=== PATIENT | female | born 1945 | race Caucasian/White ===

== ENCOUNTER 2017-06-01 12:12 | Emergency (ER) | payer MEDICARE, OTHER ==
[~2017-06-01] VITALS: Ht 165.1 cm; Wt 55.8 kg
[~2017-06-01 12:12] MED LIST: ALBU90OI6 INH; AMIO200 PO; ANDROGEL2.5 GM TD; ASPI325 PO; ATOR40TA PO; BUME1; CITA20 PO; CLON.1 PO; CLOP75 PO; CREON DR 12,001 EACH PO; FLUSAL1005 INH; FURO40 PO; IMIP25 PO; Klor-Con 1010 MEQ PO; LORA10 PO; METCAR500 PO; METH5 PO; METO100ER PO; METO50 PO; NITR.4SL SL; OLME20 PO; PROG100 PO; PROGESTERONE200 MG PO; Senna8.6 M1 PO; TRAZ50 PO; TROSPIUM CHLORI20 MG PO; Ultram50 MG PO; VERA180ERB PO
[2017-06-01 13:45] LABS: BASOPHILS ABSOLUTE AUTO 0.01 K/mm3 (0.00-0.23); BASOPHILS PERCENT AUTO 0 % (0-2); EOSINOPHILS ABSOLUTE AUTO 0.04 K/mm3 (0.00-0.68); EOSINOPHILS PERCENT AUTO 0 % (0-6); Hemoglobin 14.2 g/dL (11.5-16.0); IMMATURE GRAN ABSOLUTE AUTO 0.02 K/mm3 (0.00-0.10); IMMATURE GRAN PERCENT AUTO 0 % (0-1); LYMPHOCYTES ABSOLUTE AUTO 1.29 K/mm3 (0.84-5.20); LYMPHOCYTES PERCENT AUTO 13 % (21-46); MONOCYTES PERCENT AUTO 9 % (4-13); Mean Corpuscular HGB 31.9 pg (26.0-34.0); Mean Corpuscular Volume 97 fL (80-100); Mean Platelet Volume 8.5 fL (9.1-12.4); NEUTROPHILS ABSOLUTE AUTO 7.48 K/mm3 (1.96-9.15); NEUTROPHILS PERCENT AUTO 77 % (41-73); Platelet Count 433 K/mm3 (150-400); RDW Coefficient Variation 16.2 % (11.7-14.2); RDW Standard Deviation 57.1 fL (35.1-46.3); Red Blood Cell Count 4.45 M/mm3 (3.80-5.20); White Blood Cell Count 9.74 K/mm3 (4.00-11.30)
[2017-06-01 15:30] LABS: Source, Urine Clean Catch
[2017-06-01 15:33] LABS: Appearance, Urine Clear (Clear); Bilirubin, Urine Neg (Neg); Blood, Urine 1+ (Neg); Color, Urine Yellow (P-Yellow); Glucose Qualitative, Urine Neg (Neg); Ketones, Urine Neg (Neg); Leukocyte Esterase, Urine Neg (Neg); Nitrite, Urine Neg (Neg); Protein, Urine Neg (Neg); Specific Gravity, Urine 1.015 (1.003-1.022); Urobilinogen, Urine 1+ (Normal)
[2017-06-01] MEDS ORDERED: ASPI81CH PO (15:33)
[2017-06-01 16:17] LABS: Bacteria Few /hpf; Red Blood Cells, Urine 0-2 /hpf (0-2); Squamous Epithelial Cells Few /hpf (Few); White Blood Cells, Urine 0-2 /hpf (0-5)
[2017-06-01 16:37] LABS: Troponin I 0.068 ng/mL (0.000-0.040)
[2017-06-01 17:05] LABS: Albumin, Blood 3.2 g/dL (3.4-5.0); Albumin/Globulin Ratio 0.8 (0.8-1.8); Bun/Creatinine Ratio 28.6 (12.0-20.0); Calcium, Blood 8.9 mg/dL (8.5-10.1); Creatinine, Blood 1.33 mg/dL (0.40-1.00); Globulin, Blood 3.9 g/dL (2.2-4.0); Potassium, Blood 4.3 mmol/L (3.5-5.5); Total Protein, Blood 7.1 g/dL (6.4-8.2)
[2017-06-01] MEDS ORDERED: Percocet 5-3251 EACH PO (17:16)
== END 2017-06-01 17:37 | disposition home or self-care (01) ==
LOC: ER 12:12
PROVIDERS: Emergency Medicine
DX: R10.9 Unspecified abdominal pain (principal); N18.4 Chronic kidney disease, stage 4 (severe); M48.54XA Collapsed vertebra, not elsewhere classified, thoracic region, initial encounter for fracture; I25.10 Atherosclerotic heart disease of native coronary artery without angina pectoris; I25.2 Old myocardial infarction; F17.200 Nicotine dependence, unspecified, uncomplicated; Z88.8 Allergy status to other drugs, medicaments and biological substances; Z91.040 Latex allergy status; Z79.899 Other long term (current) drug therapy; Z79.82 Long term (current) use of aspirin; Z96.653 Presence of artificial knee joint, bilateral
CPT/HCPCS: 36415; 71045; 74176; 80053; 81001; 83690; 84484; 85025; 93005; 93010; 96374; 96375; 99284; J2405; J3010

== ENCOUNTER 2018-10-14 12:24 | Inpatient (IN) | payer MEDICARE, OTHER ==
[~2018-10-14] VITALS: Ht 160 cm; Wt 50.6 kg
[~2018-10-14 12:24] MED LIST changes: +ASPI81CH PO; -BUME1; -CITA20 PO; -METH5 PO; +Percocet 5-3251 EACH PO
[2018-10-14] MEDS ORDERED: ATOR40TA PO (12:51)
[2018-10-14] MEDS ORDERED: CLOP75 PO (12:51)
[2018-10-14] MEDS ORDERED: BUME2 PO ×2 (12:51→15:35)
[2018-10-14] MEDS ORDERED: POTCHL10ER PO (12:52)
[2018-10-14] MEDS ORDERED: TROSPIUM CHLORI20 MG PO (12:52)
[2018-10-14] MEDS ORDERED: Robaxin750 MG PO (12:52)
[2018-10-14] MEDS ORDERED: CITA20 PO ×2 (12:53→15:34)
[2018-10-14] MEDS ORDERED: IMIP25 PO (12:53)
[2018-10-14] MEDS ORDERED: PROGESTERONE200 MG PO (12:53)
[2018-10-14 13:04] LABS: BASOPHILS ABSOLUTE AUTO 0.03 K/mm3 (0.00-0.23); BASOPHILS PERCENT AUTO 0 % (0-2); EOSINOPHILS ABSOLUTE AUTO 0.12 K/mm3 (0.00-0.68); EOSINOPHILS PERCENT AUTO 1 % (0-6); Hemoglobin 14.5 g/dL (11.5-16.0); IMMATURE GRAN ABSOLUTE AUTO 0.02 K/mm3 (0.00-0.10); IMMATURE GRAN PERCENT AUTO 0 % (0-1); LYMPHOCYTES PERCENT AUTO 24 % (21-46); MONOCYTES ABSOLUTE AUTO 0.79 K/mm3 (0.16-1.47); MONOCYTES PERCENT AUTO 9 % (4-13); Mean Corpuscular HGB 30.3 pg (26.0-34.0); Mean Corpuscular Volume 92 fL (80-100); Mean Platelet Volume 8.7 fL (9.1-12.4); NEUTROPHILS ABSOLUTE AUTO 5.46 K/mm3 (1.96-9.15); NEUTROPHILS PERCENT AUTO 65 % (41-73); Platelet Count 248 K/mm3 (150-400); RDW Coefficient Variation 13.7 % (11.7-14.2); RDW Standard Deviation 46.5 fL (35.1-46.3); Red Blood Cell Count 4.79 M/mm3 (3.80-5.20); White Blood Cell Count 8.42 K/mm3 (4.00-11.30)
[2018-10-14 13:21] LABS: Albumin, Blood 3.9 g/dL (3.4-5.0); Bilirubin, Total 0.8 mg/dL (0.1-1.0); Bun/Creatinine Ratio 24.8 (12.0-20.0); Calcium, Blood 9.7 mg/dL (8.5-10.1); Creatinine, Blood 1.45 mg/dL (0.40-1.00); Globulin, Blood 4.1 g/dL (2.2-4.0)
[2018-10-14 13:28] LABS: Troponin I 1.6 ng/mL (0.000-0.040)
[2018-10-14] MEDS ORDERED: METH5 PO (14:30)
[2018-10-14 14:42] LABS: International Normalized Ratio 0.96; Prothrombin Time Results 10.2 Sec (9.7-11.5)
[2018-10-14] MEDS ORDERED: PANT40 PO (14:42)
[2018-10-14] MEDS ORDERED: ALBU90OI6 INH (15:18)
[2018-10-14] MEDS ORDERED: FLUT1DIS5 INH (15:19)
[2018-10-14] MEDS ORDERED: CREON DR 12,001 EACH PO (15:30)
[2018-10-14] MEDS ORDERED: CALC.25 PO (15:33)
[2018-10-14] MEDS ORDERED: Estrace Vagin42.5 GM TOP (15:37)
[2018-10-14] MEDS ORDERED: TESTOSTERO30 MG/1.5 TOP (15:40)
[2018-10-14] MEDS ORDERED: EPINEPHRIN0.3 MG/0.3 IM (15:40)
--- NOTE | 2018-10-14 18:59 | NUR ---
RECIEVED REPORT FROM MEN'S GOLF COACH AND ASSUMED CARE OF PATIENT. SHE IS ANXIOUS AND SHAKY ON ARRIVAL, HOWEVER, SHE IS ABLE TO STAND AND PIVOT TRANSFER TO THE BED. PT ABLE TO ASSIST WITH MED-RECONCILIATION AND ALLERGIES. PT HAS A RASH ON HER UPPER TORSO, FACE AND ARMS. SHE HAS BITES IN VARIOUS STAGES OF HEALING. PT STATES THAT SHE DOESN'T KNOW WHAT IT IS FROM AND HAS TRIED A VARIETY OF CREAMS WELL BENYDRYL TO HELP WITH THE ITCHING. SETTLED THE PATIENT AND PROVIDED DRINK AND WILL GIVE REPORT TO ONCOMING RN.
[2018-10-15 05:02] LABS: Hematocrit 41.9 % (33.0-51.0); Hemoglobin 13.5 g/dL (11.5-16.0); Mean Corpuscular HGB 29.5 pg (26.0-34.0); Mean Corpuscular HGB Conc 32.2 g/dL (31.5-36.5); Mean Corpuscular Volume 92 fL (80-100); Mean Platelet Volume 9.2 fL (9.1-12.4); Platelet Count 247 K/mm3 (150-400); RDW Coefficient Variation 14.1 % (11.7-14.2); RDW Standard Deviation 47.7 fL (35.1-46.3); Red Blood Cell Count 4.57 M/mm3 (3.80-5.20)
[2018-10-15 05:26] LABS: Bun/Creatinine Ratio 25.9 (12.0-20.0); Calcium, Blood 8.9 mg/dL (8.5-10.1); Creatinine, Blood 1.47 mg/dL (0.40-1.00); Potassium, Blood 3.5 mmol/L (3.5-5.5)
[2018-10-15 06:13] LABS: Troponin I 5.63 ng/mL (0.000-0.040)
--- NOTE | 2018-10-15 07:44 | NUR ---
SHIFT SUMMARY A/O, ABLE TO MAKE NEEDS KNOWN. COOPERATIVE WITH CARE. ANSWERS QUESTIONS APPROPRIATELY. C/O PAIN/DISCOMFORT; MEDICATED PER EMAR. TELE RUNNING NSR @ 67 WITH NO ACTIVE CP THROUGHOUT SHIFT. REMAINED ON HEPARIN DRIP. UP TO BSC WITH 1 ASSIST. NO OTHER ACUTE CHANGES OVERNIGHT. BED IN LOWEST POSITION. CALL LIGHT AND BELONGINGS WITHIN REACH. CONTINUED TO MONITOR T/O SHIFT. REPORT GIVEN TO DAY SHIFT RN.
--- NOTE | 2018-10-15 08:46 | NUR ---
At bedside report, the pt c/o chest pressure, from shoulder to shoulder, rated at a 7/10. Blood pressure noted to be elevated at 164 systolic. No diaphoresis, no dyspnea while lying in bed. spo2 was 95% on room air. After report, the pt was given 2.5 mg morphine and put on 2 l/min of O2 via nasal cannula, after which she had pain relieved to only a 5-6/10, still the pressure she described before, and her blood pressure increased to [address] Neves here, and above was reported to him. Verbal orders for nitroglycerin paste were recieved. Dr. Castle arrived around 0840 for the cardiology consultation. States that she wants the pt to go to the medical laboratory technical officer [facility] and to have a nitroglycerin gtt started STAT as well. Myke Cardozo, weigher and charger and the nursing supervisor pipe manufacture Filp were notified of this. The pt is still c/o pain, stated that it is 5/10 pressure. Additional 2.5mg of morphine was given per orders of up to 5 mg dose total, and nitropaste applied. vital signs retaken. Blood presure remains elevated at 186/93. The pt states that her pressure in her chest has been decreased to a 4/10 at 0854.
--- NOTE | 2018-10-15 09:19 | NUR ---
blood pressure is dereased to less than 170 mmHg; the pt is resting with her eyes closed, in darkened room. States that she is just feeling sleepy right now. Nursing personnel supervisor states that the pt will go to catheter builder within the hour, and that we will not be starting the NTG drip at this time since she will be going for an angiogram shortly. Still waiting for verification of pepcid and solumedrol from pharmacy in order to have access to meds for administration.
--- NOTE | 2018-10-15 09:48 | NUR ---
RIGHT AC IV NOTED TO BE LEAKING SCANT AMOUNT OF BLOOD WHEN BLOOD PRESSURE WAS TAKEN ON THAT ARM.
--- NOTE | 2018-10-15 17:47 | NUR ---
NURSING ICU DAYSHIFT SUMMARY: Assumed care of pt at approx 1115. Arrived from HC via bed accompanied by HC staff x2, bedside rpt received from IT SYSTEMS ANALYST. Pt supine upon arrival, sheath present in R groin, site stable. Hypertensive post angiogram, senior sourcing manager notified, new d/o received. SBP currently 140's after meds administered as ordered. Sheat removed at 1625, pressure held for 25 min, dressing placed. Site appears stable, small bruising noted, no bleed or hematoma noted. Pt currently at 15 degrees, site remains w/o change. Pt requires frequent reminders to not lift head or sit up, very pleasant and easily redirectable. No s/s of acute distress at this time. Call light in reach, cont to monitor until rpt is given to NOC RN.
--- NOTE | 2018-10-15 20:42 | NUR ---
PM NOTE. ASSUMED CARE OF PT APROX 1900, PT IS S/P ANGIO W/STENT PLACEMENT. RIGHT GROIN SITE. SHEATH WAS REMOVED AT 1650. SMALL AREA OF BRUISING NOTED AT THE SITE. PRESSURE WAS HELD FOR 25 MINUTES PER REPORT. MONITORS INTACT, NSR IN THE 60'S, PT'S BP 173/78. NO EDEMA NOTED. PT'S FEEL BILATERALLY ARE DUSKY AND COOL, PEDAL PULSES PALPABLE. PT STATES THIS IS NORMAL FOR HER. L/S CLEAR T/O, PT IS ON 2LNC AT 95%, PT DOES NOT NORMALLY WEAR O2 AT HOME, WILL TITRATE PT TOLERATES. BT ARE PRESENT AND HYPERACTIVE, ABD IS SOFT AND NONTENDER TO PALP. PT DENIES ANY CHEST PAIN/PRESSURE, N/V OR SOB AT THIS TIME. CALL LIGHT IN REACH, BED IS LOCKED AND LOW WILL CONTINUE TO MONITOR.
[2018-10-16 03:25] LABS: Hematocrit 40.1 % (33.0-51.0); Hemoglobin 13.5 g/dL (11.5-16.0)
[2018-10-16 03:45] LABS: Albumin, Blood 2.9 g/dL (3.4-5.0); Anion Gap 10 mmol/L (6-16); Blood Urea Nitrogen 34 mg/dL (8-24); Bun/Creatinine Ratio 24.1 (12.0-20.0); CO2, Blood 25 mmol/L (21-32); Calcium, Blood 8.3 mg/dL (8.5-10.1); Chloride, Blood 105 mmol/L (98-108); Creatinine, Blood 1.41 mg/dL (0.40-1.00); Glomerular Filtration Rate 39 (60-); Glucose, Blood 93 mg/dL (70-99); Magnesium, Blood 1.9 mg/dL (1.6-2.4); Phosphorus, Blood 2.9 mg/dL (2.5-4.9); Potassium, Blood 3.3 mmol/L (3.5-5.5); Sodium, Blood 140 mmol/L (136-145)
--- NOTE | 2018-10-16 06:33 | NUR ---
SHIFT SUMMARY. PT HAS SLEPT WELL FOR MOST OF THIS SHIFT. NO CHANGES TO THE PT'S GROIN SITE. PT HAS BEEN HYPERTENSIVE FOR SOME OF THIS SHIFT, PT WAS MEDICATED WITH PRN PER EMAR WITH GOOD RESULTS. PT DENIES ANY CHEST PAIN/PRESSURE, N/V OR SOB. PT HAS BEEN ON RA SINCE 010 THIS SHIFT. NO CARDIAC EVENTS NOTED ON THE MONITOR. PT WAS UP TO THE BATHROOM WITH FWW AND SBA. RN HYPERBARIC IN THE ROOM THIS AM, HE TOLD THE PT IF SHE IS D/C'D TODAY HE WOULD LIKE TO SEE HER IN HIS OFFICE THIS 10/19 AT 1500, PT STATED HER AGREEMENT. WILL PASS ON TO ONCOMING RN. CALL LIGHT IN REACH, BED IS LOCKED AND LOW WILL CONTINUE TO MONITOR UNTIL REPORT IS GIVEN TO ONCOMING RN.
--- NOTE | 2018-10-16 07:24 | NUR ---
CRITICAL TROP I RESULT. RESULT REPORTED FROM LAB OF [facility] OF 3.05. DR WRAY TOLD IN PERSON. NO ORDERS RECEIVED. CONTINUE POT.
--- NOTE | 2018-10-16 09:50 | NUR ---
AM NOTE PT RESTING QUIETLY. SHE DECLINED BREAKFAST. SHE DOESN'T LIKE CREAM OF WHEAT BUT SHE DIDN'T WANT ANYTHING ELSE. SHE COMPLAINED OF NAUSEA. MEDCIATED WITH ZOFRAN X1. DR MALLORY HERE TO SEE PT. VSS. RIGHT GROIN WITH SOFT, SMALL HEMATOMA. NONTENDER WITH PALPATION. PT ABLE TO TAKE ORAL MEDICTIONS WITH APPLE SAUCE. SHE STATED THAT WAS TOLERABLE. DR MALLORY TALKED WITH PT ABOUT HER FUROSEMIDE ALLERGY. PT STATED THAT SHE DIDN'T HAVE AN ALLERGY. ORDER WROTE TO PHARMACY TO REMOVE STATED ALLERGY FROM LIST PER DR MALLORY'S REQUEST. LASIX ORDERED. PT REQUESTED TO REST BEFORE RECEVING THE LASIX. SHE IS EXHAUSTED. CECILY DHER I WOULD WAIT AN HOUR. CONTINUE POT.
--- NOTE | 2018-10-16 10:39 | NUR ---
AM NOTE PT ALERT AND ORIENTED. ABLE TO USE CALL LIGHT. SR. OCCASIONAL PVC NOTED ON MONITOR. PT ABLE TO FEED HIMSELF BREAKFAST WITH A BUILT UP HANDLE SPOON. HE IS VERY PROUD OF HIMSLEF. BP INCREASING SLOWLY WITH MIDODRINE TX. DR TORO HAS ORDERED A UNIT OF PRBC. CLARIFIED PT POTASIUM ORDERS WITH DR TORO. DR TORO STOPPED THE ORAL POTASSIUM. PT HAS SCHEDULED K RIDERS CURRENTLY. PT DENIES PAIN OR DISCOMFORT. PT ABLE TO WASH HIS FACE, BRUSH HIS TOP TEETH. PT STILL HAVING FLUIDS SPOON GIVEN TO HIM. HIS HELPS HIM DRINK BY SPOON WHEN SHE'S HERE. CONTINUE POT.
--- NOTE | 2018-10-16 17:42 | NUR ---
Pt up in chair alert very tremulous and anxious compaling of GI upset and gerd and neck and back pain. Pt also having a mild headache. Pt denies dyapnea. Review of chest pain and symptoms pt warm and dry. Pt states her chest pain in non radiating and is pressure in left chest wall. Pt feels a release of stress. Coming to the hospital and the ambulace were very stressful and she says its hitting her today. Review of symptoms and supportive care. P has been having more GI stress. She has a dry mouth Physical exam pt has very very poor dentition with many broken teeth. Pt states the nigh before she had her AR her friend helped her pull out and infected and very painfull tooth. Oral exam showis heling at the site. Her neck pain is on the side of the removed tooth. Pt states dentist will not remove her teeth due to her poor health. Pt states hse has been more fatigued and had a few falls. She has managed her diseas process over the wears with a pain specialist and medical care. She sees Dr Dias the most and he has sent her to dr perdomo for some care and infusions. Pt has significan other that cares for her. We reviewed her care needs and her disease processes. she has a will but not power of admitted attorneys and an old polst at home that she does not know where it is at. We completed new polst and reviewed Advance directive. Oral care given, and ptgiven some startegies for home care of dry mouth. back and neck rub given and pt positioned for comfort with neck support pillow. Pt expressed loss of a spiritaul life she was practicing buddist. we reviewed spiritual care and stress. Packet given of buddist relfection for chronic illness and loss. will follow up with pt for supportive care. Pt high risk for failure to thrive and readmission will review with care mangers.
--- NOTE | 2018-10-16 18:10 | NUR ---
EVENING NOTE PT ALERT AND ORIENTED. SR. NO ECTOPY. VSS. PT HAS DENIED CHEST PAIN OR SOB ALL DAY. SHE DID GET VERY FATIGUED AFTER BEING UP IN THE CHAIR. SHE SLEPT FOR SEVERAL HOURS. RIGHT GROIN STABLE. HEMATOMA SOFT. NON TENDER. NO CHANGE TO MARGINS NOTED. POOR APPETITE. HER TEETH ARE IN VERY POOR SHAPE. SHE PULLED ONE OF HER TEETH A COUPLE DAYS BEFORE HER NSTEMI. CONTINUE POT.
--- NOTE | 2018-10-16 19:09 | NUR ---
TRANSFER TO PCU 3 PT TRANSFERED TO PCU VIA W/C. BEDSIDE REPORT GIVEN TO HEMANTH MCGRAW. PT SETTLED AND ORIENTED TO THE ROOM CALL LIGHT WITH IN REACH. CONTINUE POT.
--- NOTE | 2018-10-16 19:20 | NUR ---
RECEIVED HAND OFF FROM Manuel NGUYEN RN USING SBAR. TRANSPORTED TO ROOM VIA WHEELCHAIR. TRANSFERED SELF TO BED WITH STANDBY ASSIST, TOLERATED WELL. AAO X3, SALTER, FOLLOWS ALL COMMANDS. ORIENTED TO ROOM, CALL SYSTEM, AND POC, VOICES UNDERSTANDING. RIGHT FA SL PIV IS PATENT, FLUSHING WITH EASE. NS AT 50ML/HR RESTARTED PER MD ORDERS. LEFT UPPER ARM A/V FISTULA WITH GOOD THRILL AND BRUIT NOTED, PT STATES THAT IT HAS NEVER BEEN ACCESSED. RIGHT GROIN ACCESS SITE WITH TEGADERM DRESSING THAT IS C/D/I. BRUISING NOTED TO THE OUTER ASPECT OF THE THIGH. REPORTED TO BE A SOFT HEMATOMA. BP TAKEN ON LLE, VSS, NAD NOTED. SKIN TO BUE AND TRUNK ARE RED, PT STATES THAT THIS IS NORMAL FOR HER WHEN SHE IS SICK. DENIES PAIN, DISCOMFORT, OR FURTHER NEEDS AT THIS TIME. SHIFT ASSESSMENT IN PROGRESS. SAFETY MEASURES IN PLACE. WILL CONTINUE TO MONITOR.
--- NOTE | 2018-10-16 22:00 | NUR ---
C/O NAUSEA AND ABD DISCOMFORT. PRN DOSE OF ZOFRAN GIVEN AND SMALL PULL UP REMOVED AND LARGE PULL UP PLACED, VOICES RELIEF. WILL CONTINUE TO MONITOR.
[2018-10-17 03:56] LABS: Hematocrit 36.9 % (33.0-51.0); Hemoglobin 12.2 g/dL (11.5-16.0)
[2018-10-17 04:12] LABS: Albumin, Blood 2.7 g/dL (3.4-5.0); Anion Gap 9 mmol/L (6-16); Blood Urea Nitrogen 36 mg/dL (8-24); Bun/Creatinine Ratio 25.7 (12.0-20.0); CO2, Blood 22 mmol/L (21-32); Calcium, Blood 7.9 mg/dL (8.5-10.1); Chloride, Blood 105 mmol/L (98-108); Glomerular Filtration Rate 39 (60-); Glucose, Blood 86 mg/dL (70-99); Magnesium, Blood 1.6 mg/dL (1.6-2.4); Phosphorus, Blood 1.6 mg/dL (2.5-4.9); Potassium, Blood 4.1 mmol/L (3.5-5.5); Sodium, Blood 136 mmol/L (136-145)
[2018-10-17 07:45] LABS: Cholesterol 118 mg/dL (50-200); HDL Cholesterol 59 mg/dL (>39); LDL/HDL RATIO 0.8; Low Density Lipoprotein Chol 48 mg/dL (0-110); Triglycerides 55 mg/dL (30-160); Very Low Density Lipoprot Chol 11 mg/dL (6-32)
--- NOTE | 2018-10-17 14:25 | NUR ---
RETURNED PHONE CALL TO DR. SHAIKH AND DISCUSSED POSSIBLE DISCHARGE FOR TODAY; HOWEVER, BANANA EXPERT NEEDS TO MEET WITH PATIENT TO DISCUSS HOME CARE AND ENSURE PLAN IN PLACE TO FOLLOW PT/OT'S RECOMENDATIONS. CALLED CARE MANAGEMENT TEAM TO LET THEM KNOW DR CONCERNS AND WISHES FOR DISCHARGE. CALLED DR. JOHNSON TO FIND OUT ABOUT D/C THE FLUIDS, HE STATED THAT WAS FINE. ORDER DISCONTINUED.
--- NOTE | 2018-10-17 18:47 | NUR ---
PT HAD A GOOD DAY, WHEN THIS NURSE ENTERS THE ROOM PT STATES, "I AM FEELING SO MUCH BETTER THIS EVENING!" SHE ALSO EXPRESSED GRATEFULNESS FOR THE CARE AND CONCERN SHE HAS RECEIVED FROM THE DR, NURSES AND ALL STAFF THAT HAVE WORKED WITH HER DURING HER STAY IN THE HOSPITAL. DOSE OF PREDNISONE IS HELPING WITH THE RASH ON PT SKIN. PT EXPRESSES RELIEF AND STATED SHE MAY TRY THE BENYDRYL AT BEDTIME. THIS RN WILL PASS THE INFORMATION IN NOC RN IN REPORT
--- NOTE | 2018-10-17 23:08 | NUR ---
PCU NIGHTSHIFT ASSUMED CARE OF PT APPROX. 1900. PT A&O X4. ASSESSMENT COMPLETED. VITAL SIGNS STABLE. PT SITTING UP AT BEDSIDE AT THIS TIME. PT SKIN REMAINS SLIGHTLY RED AND WARM TO TOUCH. MEDICATIONS GIVEN FOR THIS PER EMAR. PT REPORTS IT HAS IMPROVED. BED IN LOW POSITION, CALL LIGHT IN REACH. AND PT DENIES ANY NEEDS AT THIS TIME. WILL CONTINUE TO MONITOR.
--- NOTE | 2018-10-17 23:32 | NUR ---
NOTE SLIGHT TEMPERATURE NOTED. BLANKETS REMOVED. COLD RAG PLACED ON FORHEAD AND ICE WATER GIVEN TO PT. WILL MONITOR.
[2018-10-18 04:40] LABS: Hematocrit 38.5 % (33.0-51.0); Hemoglobin 12.8 g/dL (11.5-16.0)
[2018-10-18 04:59] LABS: Albumin, Blood 2.9 g/dL (3.4-5.0); Anion Gap 8 mmol/L (6-16); Blood Urea Nitrogen 33 mg/dL (8-24); Bun/Creatinine Ratio 24.8 (12.0-20.0); CO2, Blood 24 mmol/L (21-32); Calcium, Blood 8.7 mg/dL (8.5-10.1); Chloride, Blood 105 mmol/L (98-108); Creatinine, Blood 1.33 mg/dL (0.40-1.00); Glomerular Filtration Rate 42 (60-); Glucose, Blood 94 mg/dL (70-99); Magnesium, Blood 1.8 mg/dL (1.6-2.4); Phosphorus, Blood 2.5 mg/dL (2.5-4.9); Potassium, Blood 4.6 mmol/L (3.5-5.5); Sodium, Blood 137 mmol/L (136-145)
--- NOTE | 2018-10-18 06:48 | NUR ---
SHIFT SUMMARY PT PLEASNT, COOPERATIVE AND USES CALL LIGHT APPROPRIATELY. PT REMAINS A&O X4. ASSESSMENT FINDINGS REMAIN UNCHANGED FROM START OF SHIFT. VITAL SIGNS STABLE. ALTHOUGH PT HAD SLIGHT TEMPERATURE, SEE PREVIOUS NOTE. TEMPERATURE CAME DOWN AFTER THIS POINT. SKIN REMAINS RED AND WARM TO TOUCH. PRN BENADRYL GIVEN PER EMAR FOR THIS. PT ABLE TO SLEEP MOST OF SHIFT. BED IN LOW POSITION, CALL LIGHT IN REACH AND PT DENIES ANY NEEDS AT THIS TIME. WILL CONTINUE TO MONITOR UNTIL HANDOFF TO DAYSHIFT RN.
--- NOTE | 2018-10-18 09:07 | NUR ---
RECEIVED REPORT AND ASSUMED CARE OF PATIENT. PT HAS PLEASANT AFFECT THIS MORNING AND STATES SHE FEELS REALLY GOOD. DR SHAIKH IN TO SEE PATIENT, SHE WOULD LIKE TO CONTINUE WORKING ON REDUCING PT RASH, TRANSFER ORDERS IN FOR MEDICAL FLOOR, WILL ADVANCE TO FULL CARDIAC DIET AND GIVE ADDITIONAL DOSES OF PREDNISONE. BED LOW AND LOCKED, CALL LIGHT WITHIN EASY REACH.
--- NOTE | 2018-10-18 15:58 | NUR ---
GAVE REPORT TO MARILUZ Cain, PT TO TRANSFER TO ROOM 301.
--- NOTE | 2018-10-18 16:15 | NUR ---
PT AYLEEN COKELY RECEIVED FROM U, MARILUZ MAURO. PT PLACED TO BED. A/O CALL LITE IN REACH, CALLS APPROP. BEFD IN LOW POSITION
--- NOTE | 2018-10-18 18:06 | NUR ---
PT PLEASANT SINCE TRANSFER TO ROOM. FEET COLD AND TOES ALMOST BLUE. 4-[address] SHAIKH. SHE IS AWARE. DID PLACE 2 WARM BLANKETS ON FEET AT DIFFERENT TIMES THIS AFT. PT STATES APPRECIATED. PT STATES REDNESS IS IMPROVED. PAIN IN BACK AND ANKLES. MEDICATED. IS ALERT ORIENTED. TALKATIVE. SITTING IN BED EATING DINNER. NO OTHER CONCERNS AT THIS TIME. BED IN LOW POSITION, CALL LITE IN REACH, CALLS APPROP
--- NOTE | 2018-10-18 18:38 | NUR ---
PT C/O LIGHT CHEST PAIN. AROUND HEART AREA. PT STATES POSS INDIGESTION, BUT NO IDEA. STATES HAS NOT FELT GOOD ALL DAY. V/S 129/58, P79, R 24, T 98.1, O2 94% RA. PER TELE: NSR AT 80. CALLED DR SHAIKH. ORDERS FOR NITRO, 0.4 MG S/L, Q5MIN X3. PRN. FENTALYL 25 MCG IV Q4 PRN IF NOT RESOLVED. CALLED TELE BACK. ANY ST CHANGES? OVER LAST TWO HOURS HS SOME ST ELEVATION LEAD 6, CALLED DR MORELAND, SHE ORDER EKG AND ASK FOR RESULTS.
--- NOTE | 2018-10-18 19:08 | NUR ---
FOLLOWUP NOTE. TELE CALLED BACK. STATES WENT OFF TELE WHEN DOING EKG, THAT WHEN WE REPLACED LEADS, LEAD 6 ST ELEVATION GONE. NOW SHOWS BACK TO NORMAL. EKG CALLED TO DR SHAIKH. WINSOME ONEAL RN STATES NO NOTICABLE CHANGES SINCE LAST EKG. REPORTED TO DR SHAIKH. ALSO THAT FENTANYL NOTED ALLERGY TO MEPERIDINE. OKAY TO OVER-RIDE.
--- NOTE | 2018-10-19 03:44 | NUR ---
SHIFT SUMMARY PT WITH CHEST PAIN AT START OF SHIFT. EKG DONE AND RESULTS CALLED IN BY DAY RN. NITRO 0.4 MG GIVEN X 3 Q 5 MINUTES. UNEFFECTIVE. 25 MCG FENTANYL GIVEN. THIS HELPED QUITE A BIT BUT DID NOT RESOLVE CHEST PAIN ENTIRELY. PT REPORTS HER PAIN TO BE TOLERABLE FOLLOWING. SCHEDULED METHADONE GIVEN FOR CHRONIC BACK PAIN. PT UP TO RESTROOM WITH SBA. STEADY ON FEET. SLOW MOVING. VOIDING WELL. TELEMETRY READING SR IN THE 80'S THROUGHOUT THE NIGHT. RASH NOTED THROUGHOUT BODY, WORSE IN BLE'S. PT REPORTS IMPROVEMENT. RASH SUSPECTED TO BE FROM ALLERGIC REACTION TO CONTRAST. VSS. PT RESTING COMFORTABLY IN BED AT THIS TIME. VSS. WILL CONTINUE TO MONITOR AND REPORT TO DAY RN.
[2018-10-19 05:12] LABS: Hematocrit 35.3 % (33.0-51.0); Hemoglobin 11.6 g/dL (11.5-16.0)
[2018-10-19 05:56] LABS: Albumin, Blood 2.6 g/dL (3.4-5.0); Anion Gap 6 mmol/L (6-16); Blood Urea Nitrogen 36 mg/dL (8-24); Bun/Creatinine Ratio 28.8 (12.0-20.0); CO2, Blood 24 mmol/L (21-32); Calcium, Blood 8.1 mg/dL (8.5-10.1); Chloride, Blood 105 mmol/L (98-108); Creatinine, Blood 1.25 mg/dL (0.40-1.00); Glomerular Filtration Rate 45 (60-); Glucose, Blood 141 mg/dL (70-99); Magnesium, Blood 1.8 mg/dL (1.6-2.4); Phosphorus, Blood 2.7 mg/dL (2.5-4.9); Potassium, Blood 4.5 mmol/L (3.5-5.5); Sodium, Blood 135 mmol/L (136-145)
--- NOTE | 2018-10-19 09:00 | NUR ---
PT PLEASANT COOP A/O. SOME ANXIETY NOTED. TREMULOUS AT BASELINE. SOME PAIN IN BACK. WILL MED PER EMAR. PT IV PAINFUL, WILL TRY TYLENOL FIRST, THEN IF NO HELP, CAN PLACE NEW IV AND IV PAIN MED. H/R REG, NO MURMER NOTED. PER TELE: NSR AT 79. DENIES CHEST PAIN AT THIS TIME. LUNGS CLEAR WITH LIGHT CRACKLES AT LOW LEFT BASE. ON R/A . RESP EASY, UNLABORED. BT X4 PT NOT SURE, BUT THINKS LAST BM 5 DAYS? WILL MED FOR B/M. VOIDS PER BATHROOM. SBA. ATTENDS FOR OCC INCONT. NO OTHER CONCERNS AT THIS TIME. BED IN LOW POSITION, CALL LITE IN REACH, CALLS APPROP
[2018-10-19 11:31] LABS: BASOPHILS ABSOLUTE AUTO 0.02 K/mm3 (0.00-0.23); BASOPHILS PERCENT AUTO 0 % (0-2); EOSINOPHILS ABSOLUTE AUTO 0.02 K/mm3 (0.00-0.68); EOSINOPHILS PERCENT AUTO 0 % (0-6); Hematocrit 38.6 % (33.0-51.0); Hemoglobin 12.7 g/dL (11.5-16.0); IMMATURE GRAN ABSOLUTE AUTO 0.12 K/mm3 (0.00-0.10); IMMATURE GRAN PERCENT AUTO 1 % (0-1); LYMPHOCYTES ABSOLUTE AUTO 0.74 K/mm3 (0.84-5.20); LYMPHOCYTES PERCENT AUTO 5 % (21-46); MONOCYTES ABSOLUTE AUTO 0.78 K/mm3 (0.16-1.47); MONOCYTES PERCENT AUTO 5 % (4-13); Mean Corpuscular HGB Conc 32.9 g/dL (31.5-36.5); Mean Corpuscular Volume 91 fL (80-100); Mean Platelet Volume 9.3 fL (9.1-12.4); NEUTROPHILS ABSOLUTE AUTO 14.01 K/mm3 (1.96-9.15); NEUTROPHILS PERCENT AUTO 89 % (41-73); Platelet Count 277 K/mm3 (150-400); RDW Coefficient Variation 14.7 % (11.7-14.2); RDW Standard Deviation 48.9 fL (35.1-46.3); Red Blood Cell Count 4.24 M/mm3 (3.80-5.20); White Blood Cell Count 15.69 K/mm3 (4.00-11.30)
--- NOTE | 2018-10-19 18:00 | NUR ---
PT PLEASANT TODAY. STATES BACK PAIN IMPROVED. REPLACED IV. DID TAKE SHOWER TODAY. REDNESS IMPROVED MORE TODAY. NO OTHER CONCERNS AT THIS TIME. BED IN LOW POSITION, CALL LITE IN REACH, CALLS APRPROP
--- NOTE | 2018-10-20 03:05 | NUR ---
SHIFT SUMMARY PATIENT HAD NO ACUTE CHANGES OBSERVED THIS SHIFT. AXO X4 AND INDEPENDENT IN THE ROOM. REPORTED ITCHING BLE AND BENADRYL 25 MG PO GIVEN PER EMAR. SCHEDULE METHEDONE GIVEN FOR CHRONIC BACK PAIN. PIV REMAINS INTACT. HEEL COMPRESSOR REPORTS NSR 78. VSS/AFEBRILE. COOPERATIVE WITH CARE. CALL LIGHT IN REACH. BED IN LOWEST POSITION. WILL CONTINUE TO MONITOR UNTIL DAY SHIFT NURSE ASSUMES CARE.
[2018-10-20 06:41] LABS: Albumin, Blood 2.9 g/dL (3.4-5.0); Anion Gap 5 mmol/L (6-16); Blood Urea Nitrogen 37 mg/dL (8-24); Bun/Creatinine Ratio 29.6 (12.0-20.0); CO2, Blood 29 mmol/L (21-32); Calcium, Blood 8.8 mg/dL (8.5-10.1); Chloride, Blood 106 mmol/L (98-108); Creatinine, Blood 1.25 mg/dL (0.40-1.00); Glomerular Filtration Rate 45 (60-); Glucose, Blood 87 mg/dL (70-99); Magnesium, Blood 2.3 mg/dL (1.6-2.4); Phosphorus, Blood 2.6 mg/dL (2.5-4.9); Potassium, Blood 4.8 mmol/L (3.5-5.5); Sodium, Blood 140 mmol/L (136-145)
[2018-10-20] MEDS ORDERED: ASPI81CH PO (12:55)
[2018-10-20] MEDS ORDERED: CREON DR 12,001 EACH PO (12:59)
[2018-10-20] MEDS ORDERED: LOSA25 PO (13:02)
[2018-10-20] MEDS ORDERED: METO25ER PO (13:05)
[2018-10-20] MEDS ORDERED: PRED10 PO (13:06)
[2018-10-20] MEDS ORDERED: NITR.4SL SL (13:07)
--- NOTE | 2018-10-20 15:00 | NUR ---
PT DISCHARGED AT 1450 WITH TO TRANSPORT. PT HAD ALL PAPERS AND EDUCATIONAL MATERIALS REVEIWED. MEDICATIONS FAXED TO PHARMACY. ALL PERSONAL BELONGINGS SENT WITH PT NO DISTRESS NOTED. ESCORTED VIA WHEELCHAIR.
== END 2018-10-20 14:02 | disposition home health service (06) | DRG 246 ==
LOC: ER 12:24 → PCU 14:48 → ICUE 14:48 → PCU 17:58 → ICUE 10-15 11:13 → PCU 10-16 19:00 → MEDS 10-18 16:03 → ENPENDDIS 10-20 10:42 → MEDS 10-20 11:58
PROVIDERS: Family Medicine; Internal Medicine; Internal Medicine Cardiovascular Disease; Internal Medicine Nephrology; ADMIT Internal Medicine
PROC: 4A023N7 Measurement of Cardiac Sampling and Pressure, Left Heart, Percutaneous Approach (ICD-10-PCS; principal; 2018-10-15)
PROC: 027034Z Dilation of Coronary Artery, One Artery with Drug-eluting Intraluminal Device, Percutaneous Approach (ICD-10-PCS; 2018-10-15)
PROC: B211YZZ Fluoroscopy of Multiple Coronary Arteries using Other Contrast (ICD-10-PCS; 2018-10-15)
DX: I21.4 Non-ST elevation (NSTEMI) myocardial infarction (principal); I50.21 Acute systolic (congestive) heart failure; I50.22 Chronic systolic (congestive) heart failure; N18.4 Chronic kidney disease, stage 4 (severe); I13.0 Hypertensive heart and chronic kidney disease with heart failure and stage 1 through stage 4 chronic kidney disease, or unspecified chronic kidney disease; Q79.6 Ehlers-Danlos syndromes; I25.10 Atherosclerotic heart disease of native coronary artery without angina pectoris; Z87.891 Personal history of nicotine dependence; I48.0 Paroxysmal atrial fibrillation; Z79.01 Long term (current) use of anticoagulants; J44.9 Chronic obstructive pulmonary disease, unspecified; N18.3 Chronic kidney disease, stage 3 (moderate); R25.1 Tremor, unspecified; K21.9 Gastro-esophageal reflux disease without esophagitis; I25.5 Ischemic cardiomyopathy
CPT/HCPCS: 36415; 71046; 76770; 80048; 80053; 80061; 80069; 83735; 84484; 85014; 85018; 85025; 85027; 85347; 85610; 85730; 93005; 93010; 93458; 93922; 93970; 94640; 94760; 96365; 96366; 96375; 97110; 97116; 97162; 97165; 97530; 97535; 99152; 99153; 99285-25; C1725; C1769; C1874; C1887; C1894; C8929; C9113; C9600; J0360; J1200; J1644; J1940; J2060; J2250; J2270; J2405; J2930; J3010; J7030; J7060; J7120; J7512; Q0163; Q9957; Q9967

== ENCOUNTER 2023-06-19 13:16 | Emergency (ER) | payer MEDICARE, OTHER ==
[~2023-06-19] VITALS: Ht 157.5 cm; Wt 51.3 kg
[~2023-06-19 13:16] MED LIST changes: +BUME2 PO; +CALC.25 PO; +CITA20 PO; +EPINEPHRIN0.3 MG/0.3 IM; +Estrace Vagin42.5 GM TOP; +FLUT1DIS5 INH; +LOSA25 PO; +METH5 PO; +METO25ER PO; +PANT40 PO; +POTCHL10ER PO; +PRED10 PO; +Robaxin750 MG PO; +TESTOSTERO30 MG/1.5 TOP
[2023-06-19 14:12] LABS: Influenza A, PCR NEGATIVE (NEGATIVE); Influenza B, PCR NEGATIVE (NEGATIVE); Resp Syncytial Virus, PCR NEGATIVE (NEGATIVE); SARS-Cov-2 (COVID-19) PCR, MMC NEGATIVE (NEGATIVE)
[2023-06-19 14:21] LABS: BASOPHILS ABSOLUTE AUTO 0.04 K/mm3 (0.00-0.23); BASOPHILS PERCENT AUTO 0 % (0-2); EOSINOPHILS ABSOLUTE AUTO 0.05 K/mm3 (0.00-0.68); EOSINOPHILS PERCENT AUTO 0 % (0-6); Hematocrit 39.9 % (33.0-51.0); Hemoglobin 13.8 g/dL (11.5-16.0); IMMATURE GRAN ABSOLUTE AUTO 0.07 K/mm3 (0.00-0.10); IMMATURE GRAN PERCENT AUTO 1 % (0-1); LYMPHOCYTES PERCENT AUTO 12 % (21-46); MONOCYTES ABSOLUTE AUTO 1.26 K/mm3 (0.16-1.47); MONOCYTES PERCENT AUTO 10 % (4-13); Mean Corpuscular HGB 30.5 pg (26.0-34.0); Mean Corpuscular HGB Conc 34.6 g/dL (31.5-36.5); Mean Corpuscular Volume 88 fL (80-100); Mean Platelet Volume 9.8 fL (9.1-12.4); NEUTROPHILS ABSOLUTE AUTO 9.24 K/mm3 (1.96-9.15); NEUTROPHILS PERCENT AUTO 76 % (41-73); Platelet Count 149 K/mm3 (150-400); RDW Coefficient Variation 13.3 % (11.7-14.2); RDW Standard Deviation 43.6 fL (35.1-46.3); Red Blood Cell Count 4.52 M/mm3 (3.80-5.20); White Blood Cell Count 12.16 K/mm3 (4.00-11.30)
[2023-06-19 14:37] LABS: Albumin, Blood 2.4 g/dL (3.4-5.0); Albumin/Globulin Ratio 0.6 (0.8-1.8); Bun/Creatinine Ratio 50.7 (12.0-20.0); Calcium, Blood 8.5 mg/dL (8.5-10.1); Creatinine, Blood 1.34 mg/dL (0.40-1.00); Potassium, Blood 2.8 mmol/L (3.5-5.5); Total Protein, Blood 6.4 g/dL (6.4-8.2)
[2023-06-19 18:11] LABS: Source, Urine Straight Cath
[2023-06-19 18:19] LABS: Appearance, Urine Hazy (Clear); Bilirubin, Urine Neg (Neg); Blood, Urine 4+ (Neg); Color, Urine Yellow (P-Yellow); Glucose Qualitative, Urine Neg (Neg); Ketones, Urine Neg (Neg); Leukocyte Esterase, Urine 3+ (Neg); Nitrite, Urine Neg (Neg); Protein, Urine 1+ (Neg); Urobilinogen, Urine NORM (Normal)
[2023-06-19 18:26] LABS: Bacteria Many /hpf; Squamous Epithelial Cells Few /hpf (Few)
[2023-06-19] MEDS ORDERED: ONDA4ODT MM (19:18)
[2023-06-19] MEDS ORDERED: CEPH500 PO (19:18)
[2023-06-19 19:30] VITALS: BP 148/71
== END 2023-06-19 19:54 | disposition home or self-care (01) ==
LOC: ER 13:16
PROVIDERS: Student in an Organized Health Care Education/Training Program
DX: N39.0 Urinary tract infection, site not specified (principal); N18.30 Chronic kidney disease, stage 3 unspecified; I25.10 Atherosclerotic heart disease of native coronary artery without angina pectoris; F17.200 Nicotine dependence, unspecified, uncomplicated; Z79.899 Other long term (current) drug therapy; Z79.82 Long term (current) use of aspirin; Z79.52 Long term (current) use of systemic steroids; Z91.040 Latex allergy status; Z91.013 Allergy to seafood; Z11.52 Encounter for screening for COVID-19
CPT/HCPCS: 0241U; 51701; 71046; 80053; 81001; 85025; 87077; 87086; 87186; 93005; 93010; 96361-59; 96365-59; 96375-59; 99285-25; A9270; J0696; J2405; J7030

== ENCOUNTER 2023-10-08 11:18 | Emergency (ER) | payer MEDICARE, OTHER ==
[~2023-10-08] VITALS: Ht 157.5 cm; Wt 50.4 kg
[~2023-10-08 11:18] MED LIST changes: +CEPH500 PO; +ONDA4ODT MM
[2023-10-08 13:21] LABS: BASOPHILS ABSOLUTE AUTO 0.04 K/mm3 (0.00-0.23); BASOPHILS PERCENT AUTO 1 % (0-2); EOSINOPHILS PERCENT AUTO 3 % (0-6); Hematocrit 37.8 % (33.0-51.0); Hemoglobin 12.2 g/dL (11.5-16.0); IMMATURE GRAN ABSOLUTE AUTO 0.01 K/mm3 (0.00-0.10); IMMATURE GRAN PERCENT AUTO 0 % (0-1); LYMPHOCYTES ABSOLUTE AUTO 2.44 K/mm3 (0.84-5.20); LYMPHOCYTES PERCENT AUTO 33 % (21-46); MONOCYTES ABSOLUTE AUTO 0.67 K/mm3 (0.16-1.47); MONOCYTES PERCENT AUTO 9 % (4-13); Mean Corpuscular HGB 31.2 pg (26.0-34.0); Mean Corpuscular HGB Conc 32.3 g/dL (31.5-36.5); Mean Corpuscular Volume 97 fL (80-100); Mean Platelet Volume 8.3 fL (9.1-12.4); NEUTROPHILS ABSOLUTE AUTO 4.08 K/mm3 (1.96-9.15); NEUTROPHILS PERCENT AUTO 55 % (41-73); Platelet Count 337 K/mm3 (150-400); RDW Coefficient Variation 12.6 % (11.7-14.2); RDW Standard Deviation 44.9 fL (35.1-46.3); Red Blood Cell Count 3.91 M/mm3 (3.80-5.20); White Blood Cell Count 7.44 K/mm3 (4.00-11.30)
[2023-10-08 13:45] LABS: Albumin, Blood 3.7 g/dL (3.4-5.0); Albumin/Globulin Ratio 0.9 (0.8-1.8); Bilirubin, Total 0.3 mg/dL (0.1-1.0); Bun/Creatinine Ratio 27.3 (12.0-20.0); Calcium, Blood 9.4 mg/dL (8.5-10.1); Creatinine, Blood 1.28 mg/dL (0.40-1.00); Globulin, Blood 4.3 g/dL (2.2-4.0); Potassium, Blood 4.3 mmol/L (3.5-5.5)
[2023-10-08 14:30] VITALS: BP 160/80
[2023-10-08] MEDS ORDERED: CEPH500 PO (14:54)
== END 2023-10-08 15:19 | disposition home or self-care (01) ==
LOC: ER 11:18
PROVIDERS: Student in an Organized Health Care Education/Training Program
DX: T82.868A Thrombosis due to vascular prosthetic devices, implants and grafts, initial encounter (principal); L03.114 Cellulitis of left upper limb; N18.30 Chronic kidney disease, stage 3 unspecified; F17.200 Nicotine dependence, unspecified, uncomplicated; Z79.82 Long term (current) use of aspirin; Z79.51 Long term (current) use of inhaled steroids; Z79.52 Long term (current) use of systemic steroids; Z79.899 Other long term (current) drug therapy; Z91.040 Latex allergy status; Z91.041 Radiographic dye allergy status; Z88.1 Allergy status to other antibiotic agents; Z88.6 Allergy status to analgesic agent; Z91.013 Allergy to seafood
CPT/HCPCS: 80053; 85025

== ENCOUNTER 2024-04-06 15:06 | Observation (INO) | payer MEDICARE, OTHER ==
[~2024-04-06] VITALS: Ht 154.9 cm; Wt 47.6 kg
[2024-04-06 15:25] LABS: BASOPHILS ABSOLUTE AUTO 0.01 K/mm3 (0.00-0.23); BASOPHILS PERCENT AUTO 0 % (0-2); EOSINOPHILS ABSOLUTE AUTO 0.17 K/mm3 (0.00-0.68); EOSINOPHILS PERCENT AUTO 2 % (0-6); Hemoglobin 8.7 g/dL (11.5-16.0); IMMATURE GRAN ABSOLUTE AUTO 0.03 K/mm3 (0.00-0.10); IMMATURE GRAN PERCENT AUTO 0 % (0-1); LYMPHOCYTES ABSOLUTE AUTO 3.21 K/mm3 (0.84-5.20); LYMPHOCYTES PERCENT AUTO 43 % (21-46); MONOCYTES PERCENT AUTO 8 % (4-13); Mean Corpuscular HGB 31.9 pg (26.0-34.0); Mean Corpuscular HGB Conc 32.2 g/dL (31.5-36.5); Mean Corpuscular Volume 99 fL (80-100); Mean Platelet Volume 8.1 fL (9.1-12.4); NEUTROPHILS PERCENT AUTO 46 % (41-73); Platelet Count 265 K/mm3 (150-400); RDW Coefficient Variation 14.7 % (11.7-14.2); RDW Standard Deviation 51.7 fL (35.1-46.3); Red Blood Cell Count 2.73 M/mm3 (3.80-5.20); White Blood Cell Count 7.42 K/mm3 (4.00-11.30)
[2024-04-06] MEDS ORDERED: Lactated Ringer's 1,000 ML IV ONE (15:30)
[2024-04-06 15:38] LABS: Source, Urine Fem Cath
[2024-04-06 15:44] LABS: Albumin, Blood 2.3 g/dL (3.4-5.0); Albumin/Globulin Ratio 0.9 (0.8-1.8); Bilirubin, Total 0.4 mg/dL (0.1-1.0); Bun/Creatinine Ratio 38.1 (12.0-20.0); Calcium, Blood 7.2 mg/dL (8.5-10.1); Creatinine, Blood 1.26 mg/dL (0.40-1.00); Globulin, Blood 2.5 g/dL (2.2-4.0); Potassium, Blood 4.1 mmol/L (3.5-5.5); Total Protein, Blood 4.8 g/dL (6.4-8.2)
[2024-04-06 15:48] LABS: Appearance, Urine Clear (Clear); Bilirubin, Urine Neg (Neg); Blood, Urine Neg (Neg); Color, Urine Yellow (P-Yellow); Glucose Qualitative, Urine Neg (Neg); Ketones, Urine Neg (Neg); Leukocyte Esterase, Urine 1+ (Neg); Nitrite, Urine Neg (Neg); Protein, Urine Neg (Neg); Urobilinogen, Urine NORM (Normal)
[2024-04-06 16:32] LABS: Bacteria Mod /hpf; Red Blood Cells, Urine 0-2 /hpf (0-2); Squamous Epithelial Cells Rare /hpf (Few)
[2024-04-06] MEDS ORDERED: Diphth,Pertuss(Acell),Tet Vac 0.5 ML VIAL IM ONE (17:20)
[2024-04-06] MEDS ORDERED: Ondansetron HCl 2 MG / ML 2ML Vial IV PRN (18:25)
[2024-04-06] MEDS ORDERED: FLU VACC TS2024-25(6MOS UP)/PF 45 MCG/0.5 ML SYRINGE IM SCH (18:25)
[2024-04-06] MEDS ORDERED: NS 1,000 ML IV SCH (18:25)
[2024-04-06] MEDS ORDERED: Albumin (Human) 25gm/100ml 100 ML IV ONE (18:30)
[2024-04-06] MEDS ORDERED: CefTRIAXone Sodium 1,000 MG in NS 100 ML IV SCH (19:00)
[2024-04-06 19:26] LABS: U Amphetamine Screen Not Detected; U Barbituate Screen Not Detected; U Benzodiazapine Screen Not Detected; U Buprenorphine Screen Not Detected; U Cannabinoids Screen DETECTED; U Cocaine Screen Not Detected; U Methadone Screen Not Detected; U Methamphetamine Screen Not Detected; U Opiates Screen DETECTED; U Oxycodone Screen Not Detected; U Phencyclidine Screen Not Detected
[2024-04-06 19:47] LABS: Hematocrit 27.9 % (33.0-51.0); Hemoglobin 8.9 g/dL (11.5-16.0)
[2024-04-06] MEDS ORDERED: CARV3.125 PO (20:27)
[2024-04-06] MEDS ORDERED: CATAPRES0.1 MG PO (20:27)
[2024-04-06] MEDS ORDERED: PREG75 PO (20:34)
[2024-04-06] MEDS ORDERED: Cephalexin Monohydrate 500 MG Cap PO SCH (21:00)
[2024-04-06] MEDS ORDERED: NS 250 ML IV SCH (21:00)
[2024-04-06 21:02] LABS: Influenza A, PCR NEGATIVE (NEGATIVE); Influenza B, PCR NEGATIVE (NEGATIVE); Resp Syncytial Virus, PCR NEGATIVE (NEGATIVE); SARS-Cov-2 (COVID-19) PCR, MMC NEGATIVE (NEGATIVE)
[2024-04-06 22:03] VITALS: BP 145/79
[2024-04-07] MEDS ORDERED: Mometasone/Formoterol MDI 200/5 mcg 13 GM INH SCH (00:10)
[2024-04-07] MEDS ORDERED: Albuterol HFA200 ACT/6.7 GM INH INH PRN (00:15)
[2024-04-07 02:18] LABS: Hematocrit 27.3 % (33.0-51.0)
[2024-04-07] MEDS ORDERED: Acetaminophen 325 MG TABLET PO PRN (04:15)
[2024-04-07] MEDS ORDERED: Nitroglycerin 0.4 MG SUBL SL PRN (04:15)
[2024-04-07 04:51] VITALS: BP 141/71
[2024-04-07] MEDS ORDERED: Pantoprazole Sodium 40 MG Tab PO SCH (06:00)
[2024-04-07 07:43] VITALS: BP 161/90
[2024-04-07 08:29] LABS: BASOPHILS ABSOLUTE AUTO 0.02 K/mm3 (0.00-0.23); BASOPHILS PERCENT AUTO 0 % (0-2); EOSINOPHILS ABSOLUTE AUTO 0.39 K/mm3 (0.00-0.68); EOSINOPHILS PERCENT AUTO 4 % (0-6); Hematocrit 28.3 % (33.0-51.0); Hemoglobin 9.3 g/dL (11.5-16.0); IMMATURE GRAN ABSOLUTE AUTO 0.02 K/mm3 (0.00-0.10); IMMATURE GRAN PERCENT AUTO 0 % (0-1); LYMPHOCYTES ABSOLUTE AUTO 3.29 K/mm3 (0.84-5.20); LYMPHOCYTES PERCENT AUTO 37 % (21-46); MONOCYTES ABSOLUTE AUTO 0.62 K/mm3 (0.16-1.47); MONOCYTES PERCENT AUTO 7 % (4-13); Mean Corpuscular HGB 31.7 pg (26.0-34.0); Mean Corpuscular HGB Conc 32.9 g/dL (31.5-36.5); Mean Corpuscular Volume 97 fL (80-100); Mean Platelet Volume 8.3 fL (9.1-12.4); NEUTROPHILS ABSOLUTE AUTO 4.48 K/mm3 (1.96-9.15); NEUTROPHILS PERCENT AUTO 51 % (41-73); Platelet Count 308 K/mm3 (150-400); RDW Coefficient Variation 14.8 % (11.7-14.2); RDW Standard Deviation 50.2 fL (35.1-46.3); Red Blood Cell Count 2.93 M/mm3 (3.80-5.20); White Blood Cell Count 8.82 K/mm3 (4.00-11.30)
[2024-04-07 08:38] LABS: Albumin/Globulin Ratio 1.1 (0.8-1.8); Bilirubin, Total 0.4 mg/dL (0.1-1.0); Bun/Creatinine Ratio 29.2 (12.0-20.0); Calcium, Blood 8.3 mg/dL (8.5-10.1); Creatinine, Blood 1.37 mg/dL (0.40-1.00); Globulin, Blood 2.7 g/dL (2.2-4.0); Potassium, Blood 4.5 mmol/L (3.5-5.5); Total Protein, Blood 5.7 g/dL (6.4-8.2)
[2024-04-07] MEDS ORDERED: Aspirin 81 MG Chew PO SCH (09:00)
[2024-04-07] MEDS ORDERED: OxyCODONE 5 mg/Acetamin 325 mg TABLET PO PRN (13:00)
[2024-04-07 13:51] LABS: Hematocrit 30.1 % (33.0-51.0); Hemoglobin 9.8 g/dL (11.5-16.0)
[2024-04-07] MEDS ORDERED: Lidocaine HCl 4% Cream 5 GM TOP SCH (14:00)
[2024-04-07] MEDS ORDERED: NS 1,000 ML IV ONE (14:00)
[2024-04-07] MEDS ORDERED: ValACYClovir HCL 500 MG Tab PO SCH (14:00)
[2024-04-07 17:00] VITALS: BP 176/76
--- NOTE | 2024-04-07 18:45 | NUR ---
SHIFT SUMMARY PATIENT ALERT AND ORIENTED. PATIENT HAS CRUSTED SHINGLES LEISIONS ON NECK AND BACK. PATIENT CONTINUES TO HAVE PAIN AND MEDICATE FOR PAIN PER MAR. PATIENT ABLE TO AMBULATE WITH ONE PERSON ASSIST TO BR NEEDED. MEPILEX APPLIED TO COCCYX AREA BECAUSE OF REDNESS SEEN.
[2024-04-07 20:03] VITALS: BP 166/85
[2024-04-07 20:28] LABS: Hematocrit 28.2 % (33.0-51.0); Hemoglobin 9.4 g/dL (11.5-16.0)
[2024-04-07] MEDS ORDERED: Gabapentin 300 MG Cap PO SCH (21:00)
[2024-04-08 03:57] VITALS: BP 190/89
[2024-04-08] MEDS ORDERED: HydrALAZINE HCl 20 MG / ML 1ML Vial IV PRN ×3 (04:10→10:00)
[2024-04-08 05:50] VITALS: BP 184/65
--- NOTE | 2024-04-08 05:56 | NUR ---
SHIFT SUMMARY PT A&OX4, AMB W/ 1P ASSIST, TOLERATING PO, VOIDING, AND PAIN MANAGED PER EMAR. PT HYPERTENSIVE AND MEDICATED PER EMAR W/ MINIMAL IMPROVEMENT. PT TRANSFERRED FROM ROOM 328 TO 332 DUE TO OPEN SHINGLES SORE ON L EAR. NO OTHER ACUTE CHANGES. CALL LIGHT WITHIN REACH AND PT ABLE TO MAKE NEEDS KNOWN.
[2024-04-08] MEDS ORDERED: HydrALAZINE HCl 20 MG / ML 1ML Vial IV ONE (06:20)
--- NOTE | 2024-04-08 06:31 | NUR ---
THIS NURSE NOTIFIED HOSPITALIST OF PT'S LITTLE IMPROVEMENT OF BP AFTER HYDRALAZINE ADMINISTRATION. NEW ORDER RECEIVED AND GIVEN. PT NEW C/O HEADACHE THAT WAS MEDICATED W/ TYLENOL PER EMAR.
[2024-04-08 07:40] VITALS: BP 183/90
[2024-04-08 08:53] VITALS: BP 137/79
[2024-04-08] MEDS ORDERED: Cephalexin Monohydrate 500 MG Cap PO SCH (09:00)
[2024-04-08] MEDS ORDERED: Losartan Potassium 25 MG Tab PO SCH (09:00)
[2024-04-08] MEDS ORDERED: CloNIDine 0.1 MG Tab PO SCH (09:00)
[2024-04-08] MEDS ORDERED: Metoprolol Tartrate 25 MG Tab PO SCH ×2 (09:00)
[2024-04-08 10:21] LABS: Hematocrit 30.3 % (33.0-51.0)
[2024-04-08 10:43] LABS: Bun/Creatinine Ratio 26.7 (12.0-20.0); Calcium, Blood 8.2 mg/dL (8.5-10.1); Creatinine, Blood 1.31 mg/dL (0.40-1.00); Potassium, Blood 3.9 mmol/L (3.5-5.5)
[2024-04-08] MEDS ORDERED: VALA500 PO (12:06)
--- NOTE | 2024-04-08 13:04 | NUR ---
SHIFT/DISCHARGE SUMMARY: PATIENT A/OX4, PLEASANT AND COOPERATIVE c CARE. PATIENT DENIES CP/PRESSURE, SOB, N/V AND DIZZINESS. PATIENT ON TELE, SR HR IN THE 80'S BPM. PATIENT BP HAS IMPROVED, RECEIVED BP/SCHEDULED MEDS PER EMAR. PATIENT HAS GOOD APPETITE, CONTINENT OF BOWEL/BLADDER, AMBULATES TO BATHROOM c SBA/FWW. PATIENT HAS NO NEW CONCERNED/COMPLAINTS THIS SHIFT. PATIENT REQUESTING TO GO HOME TODAY, DR. CANALES AWARE OF THIS REQUEST. PIV TO R FOREARM DC'D. PATIENT DISCHARGE HOME. DISCHARGE INSTRUCTIONS PACKET GIVEN TO PATIENT. PATIENT EDUCATED ON ADMITTING DX'S OF HYPOTENSION, WHICH RESOLVED, SHINGLES, NEW RX AND TO F/U c PCP. PATIENT VERBALIZED UNDERSTANDING AND NO FURTHER QUESTIONS. PATIENT RX WAS FAXED TO PREREFERRED PHARMACY ([facility] ALL PATIENT PERSONAL BELONGINGS WERE SENT c THE PATIENT. PATIENT LEFT THE ROOM AT 1246 TRANSPORTED VIA WHEELCHAIR BY THIS RN TO PATIENT ENTRANCE.
== END 2024-04-08 12:47 | disposition home or self-care (01) ==
LOC: ER 15:06 → MEDS 15:07
PROVIDERS: Hospitalist; Student in an Organized Health Care Education/Training Program; ADMIT Internal Medicine
DX: I95.1 Orthostatic hypotension (principal); G93.40 Encephalopathy, unspecified; B02.9 Zoster without complications; D64.9 Anemia, unspecified; I12.9 Hypertensive chronic kidney disease with stage 1 through stage 4 chronic kidney disease, or unspecified chronic kidney disease; N18.30 Chronic kidney disease, stage 3 unspecified; E88.09 Other disorders of plasma-protein metabolism, not elsewhere classified; I25.10 Atherosclerotic heart disease of native coronary artery without angina pectoris; J45.909 Unspecified asthma, uncomplicated; Z87.891 Personal history of nicotine dependence; Z88.8 Allergy status to other drugs, medicaments and biological substances; Z79.899 Other long term (current) drug therapy
CPT/HCPCS: 0241U; 36415; 71045; 80048; 80053; 81001; 83605; 83735; 83880; 84484; 85014; 85018; 85025; 87086; 93005; 93010; 94640; 94664; 94760; 96361; 96365; 96366; 96368; 96375; 96376; 99285-25; A9270; G0378; J0360; J0696; J7030; J7120; P9047

== ENCOUNTER → 2024-06-15 | Outpatient (CLI) | payer MEDICARE, OTHER ==
[~2024-06-15] MED LIST changes: +CARV3.125 PO; +CATAPRES0.1 MG PO; +PREG75 PO; +VALA500 PO
== END | disposition home or self-care (01) ==
LOC: LAB 12:00 → LAB SHORT 12:00
DX: N39.0 Urinary tract infection, site not specified (principal)
CPT/HCPCS: 87086